=== PATIENT | female | born 1955 | race Two or more races ===

== ENCOUNTER 2021-07-15 04:37 | Inpatient (IN) | payer MEDICARE, OTHER ==
[~2021-07-15] VITALS: Ht 165.1 cm; Wt 67.6 kg
[2021-07-15] MEDS ORDERED: MELA3TAB41 PO (14:05)
[2021-07-15] MEDS ORDERED: MAGN61TA3 PO (14:05)
[2021-07-15] MEDS ORDERED: CHOL100043 PO (14:05)
[2021-07-15] MEDS ORDERED: BIOT800T PO (14:05)
[2021-07-15] MEDS ORDERED: CYAN-51 PO (14:05)
[2021-07-15] MEDS ORDERED: ZIPR40CA2 PO (14:05)
[2021-07-15] MEDS ORDERED: QUET100T PO (14:05)
[2021-07-15] MEDS ORDERED: RUTI500T PO (14:05)
[2021-07-15] MEDS ORDERED: TEMAZEPAM 7.5 MG CAPSULE PO PRN (14:30)
[2021-07-15] MEDS ORDERED: MAG HYDROX/AL HYDROX/SIMETH 30 ML UDC PO PRN (14:30)
[2021-07-15] MEDS ORDERED: BLOOD SUGAR DIAGNOSTIC 1 EACH STRIP IN ONE (14:30)
--- NOTE | 2021-07-15 14:36 | NUR ---
ANDREA Initial Discharge Plan: Pt currently resides at [address] [place] [address]; ([phone]). Pt lives with her ex-boyfriend. Patient would want to return back home upon dc. ANDREA will work with the MD, treatment team, and family to help coordinate appropriate discharge.
--- NOTE | 2021-07-15 14:36 | NUR ---
SW Admit Source: Pt placed on a 5150 hold for danger to self and GD. Pt brought in because she attempted to overdose and has been dealing with stage 3 kidney failure. Pt currently resides at [address] [place] [address]; ([phone]). Pt lives with her ex-boyfriend. Patient would want to return back home upon dc.
[2021-07-15 14:44] VITALS: BP 125/80
--- NOTE | 2021-07-15 15:05 | NUR ---
Pt. agreed got BS check and result is 106.
--- NOTE | 2021-07-15 15:45 | NUR ---
ANDREA Family Contact: Per pt's request she requested to contact friend Shiva ([phone]) to notify and to gather collateral, discuss treatment plan, and discharge plan. ANDREA left a detailed voicemail.
--- NOTE | 2021-07-15 15:54 | NUR ---
RN-CO: ADMITTED A 65 YEAR OLD FEMALE FROM [facility] ED. PATIENT IS ON A 72 HOUR HOLD FOR DANGER TO SELF AND GD. PER HOLD , SHE THREATENED TO OD ON MEDICATIONS, SHE WAS ACTING BIZARRE, LOUD AND UNABLE TO DIFFERENTIATE BETWEEN FANTASY AND REALITY. UPON FACE TO FACE ADMISSION WITH THE PATIENT, NOTED THAT HER AFFECT IS BLUNTED, HER SPEECH IS TANGENTIAL AND SHE HAS FLIGHT OF IDEAS. SHE IS HYPERVERBAL BUT SOME ARE NONSENSICAL, OTHERWISE SHE WAS ABLE TO TELL ME SOME INFORMATION ABOUT HERSELF. SHE DENIES SUICIDAL IDEATIONS. PATIENT'S RIGHTS WERE DISCUSSED TO HER, BOOKLET WAS GIVEN AND SHE VERBALIZED UNDERSTANDING. ALL BELONGINGS WERE SCREENED FROM [facility]ANDS AND WAS KEPT IN A LOCKED CABINET. VALUABLES WERE KEPT IN THE SAFE. DR JEFFERY GAVE ADMITTING ORDERS AND [place] PARADA NP WAS NOTIFIED AND ASKED TO RECONCILE HOME MEDS. WE WILL MONITOR THE PATUIENT AND ANTICIPATE HER NEEDS. HER SKIN IS INTACT AND CLEAR.
[2021-07-15 16:00] VITALS: BP 127/77
[2021-07-15 20:09] VITALS: BP 140/81
[2021-07-15] MEDS: LORAZEPAM 0.5 MG TABLET PO PRN (22:05)
[2021-07-15] MEDS: ACETAMINOPHEN 325 MG TABLET PO PRN (23:21)
[2021-07-16 07:45] LABS: CHOLESTEROL 237 mg/dL (<200); HDL CHOLESTEROL 85 mg/dL (40-60); LDL 138 mg/dL (0-99); TRIGLYCERIDES 73 mg/dL (30-150)
[2021-07-16 07:48] LABS: ALBUMIN 3.9 g/dL (3.4-5.0); BILIRUBIN,TOTAL 0.4 mg/dL (0.2-1.0); CREATININE 1.3 mg/dL (0.6-1.3); POTASSIUM 3.6 mmol/L (3.5-5.1); TOTAL PROTEIN, SERUM 8.1 g/dL (6.4-8.2)
[2021-07-16 08:00] VITALS: BP 129/69
[2021-07-16 08:21] LABS: THYROID STIMULATING HORMONE 0.991 uIU/mL (0.358-3.74)
[2021-07-16] MEDS: CHOLECALCIFEROL 1,000 UNIT TABLET (VIT D3) PO SCH (08:49)
[2021-07-16] MEDS: CYANOCOBALAMIN 500 MCG TABLET PO SCH (08:49)
[2021-07-16] MEDS: MAGNESIUM OXIDE 400 MG TABLET PO SCH ×2 (08:49→08:57)
[2021-07-16] MEDS ORDERED: BIOTIN 600 MCG PO SCH (09:00)
--- NOTE | 2021-07-16 12:36 | NUR ---
SW Friend Contact: SW received a call from pt's friend Shiva ([phone]) to gather collateral and discuss discharge plan. He stated pt lives with him and will return back to his house upon dc.
[2021-07-16 16:00] VITALS: BP 155/80
--- NOTE | 2021-07-16 18:32 | NUR ---
RN OPENING NOTES RECEIVED PATIENT SITTING ON THE CHAIR IN THE ALLEY AND A/O X2-3. ON ROOM AIR TOLERATING WELL. NO SOB NOTED. NOT IN DISTRESS. PATIENT IS CALM AT THIS TIME. WITH NO IV ACCESS. SAFETY MEASURES IN PLACED. BED ON LOWEST LOCKED POSITION, SIDE RAILS UP X2. WILL CONTINUE TO MONITOR.
--- NOTE | 2021-07-16 18:33 | NUR ---
RN CLOSING NOTES PATIENT SITTING ON THE CHAIR IN THE ALLEY AND A/O X2-3. ON ROOM AIR TOLERATING WELL. NO SOB NOTED. NOT IN DISTRESS. PATIENT IS CALM AT THIS TIME. WITH NO IV ACCESS. DUE MEDS GIVEN. SAFETY MEASURES IN PLACED. BED ON LOWEST LOCKED POSITION, SIDE RAILS UP X2. WILL ENDORSE TO NEXT SHIFT FOR JORGE.
--- NOTE | 2021-07-16 19:30 | NUR ---
GPS RN NOTE, RECEIVED PATIENT AWAKE AND IN BED, NO S/S OR COMPLAINTS OF PAIN AT THIS TIME. PATIENT IS DISPLAYING NO S/S OF APPARENT DISTRESS AT THIS TIME. PATIENT BREATHING IS UNLABORED WITH EQUAL RISE AND FALL OF THE CHEST. PATIENT IS ALERT AND ORIENTED X 2 ON ROOM AIR WITH A SPO2 93%. PATIENT IS COMPLIANT WITH MEDICATIONS, ANXIOUS, HYPERVERBAL, PARANOID, UNCOOPERATIVE AT TIMES, NEEDS REDIRECTION. PATIENT DENIES SUICIDAL AND HOMICIDAL IDEATIONS AT THIS TIME. PATIENT ASSISTED WITH TURNING AND REPOSITIONING Q2HR AND PRN FOR COMFORT AND CIRCULATION. PATIENT HAS NO NEEDS AT THIS TIME. PATIENT EDUCATED ON THE USE OF THE CALL PASTOR. PATIENT BED SIDE RAILS UP X 2 FOR SAFETY. PATIENT BED IS LOCKED, LOW, WITH BED ALARM ON. WILL CONTINUE TO MONITOR THIS PATIENT Q15 MINUTES WITH THE HELP OF STAFF TO MAINTAIN SAFETY.
[2021-07-16 20:00] VITALS: BP 151/91
--- NOTE | 2021-07-16 20:23 | NUR ---
GPS RN NOTE, PATIENT HAS A COMPLAINT OF A HEADACHE AT 3 OUT 10 ON THE PAIN SCALE AND IS REQUESTING TYLENOL AT THIS TIME. PATIENT VITAL SIGNS ARE STABLE. GAVE TYLENOL 650MG PO Q6HR PRN ORDERED. WILL REASSESS PAIN AND I WILL CONTINUE TO MONITOR THIS PATIENT WITH THE HELP OF STAFF.
[2021-07-16] MEDS: LORAZEPAM 0.5 MG TABLET PO PRN (20:24)
[2021-07-16] MEDS: ACETAMINOPHEN 325 MG TABLET PO PRN (20:24)
--- NOTE | 2021-07-16 20:24 | NUR ---
GPS RN NOTE, PATIENT HAS A COMPLAINT OF FEELING ANXIOUS AND IS REQUESTING ATIVAN AT THIS TIME. PATIENT VITAL SIGNS ARE STABLE. GAVE ATIVAN 0.5MG PO Q4HR PRN ORDERED. WILL REASSESS FOR ANXIETY AND I WILL CONTINUE TO MONITOR THIS PATIENT WITH THE HELP OF STAFF.
[2021-07-16] MEDS: CARBAMAZEPINE 200 MG TABLET PO SCH (23:48)
[2021-07-16] MEDS: clonazePAM 0.5 MG TABLET PO SCH (23:48)
[2021-07-17 08:00] VITALS: BP 136/86
[2021-07-17] MEDS: CARBAMAZEPINE 200 MG TABLET PO SCH ×3 (08:08→16:17)
[2021-07-17] MEDS: CHOLECALCIFEROL 1,000 UNIT TABLET (VIT D3) PO SCH (08:08)
[2021-07-17] MEDS: clonazePAM 0.5 MG TABLET PO SCH ×3 (08:08→16:17)
[2021-07-17] MEDS: MAGNESIUM OXIDE 400 MG TABLET PO SCH ×2 (08:08→08:12)
[2021-07-17] MEDS: CYANOCOBALAMIN 500 MCG TABLET PO SCH (08:08)
[2021-07-17 08:24] LABS: CREATININE 1.3 mg/dL (0.6-1.3); POTASSIUM 4.3 mmol/L (3.5-5.1)
[2021-07-17 16:00] VITALS: BP 134/77
--- NOTE | 2021-07-17 19:30 | NUR ---
GPS RN NOTE, RECEIVED PATIENT AWAKE AND IN BED, NO S/S OR COMPLAINTS OF PAIN AT THIS TIME. PATIENT IS DISPLAYING NO S/S OF APPARENT DISTRESS AT THIS TIME. PATIENT BREATHING IS UNLABORED WITH EQUAL RISE AND FALL OF THE CHEST. PATIENT IS ALERT AND ORIENTED X 2 ON ROOM AIR WITH A SPO2 96%. PATIENT IS COMPLIANT WITH MEDICATIONS, ANXIOUS, PARANOID, UNCOOPERATIVE AT TIMES, NEEDS REDIRECTION. PATIENT DENIES SUICIDAL AND HOMICIDAL IDEATIONS AT THIS TIME. PATIENT ASSISTED WITH TURNING AND REPOSITIONING Q2HR AND PRN FOR COMFORT AND CIRCULATION. PATIENT HAS NO NEEDS AT THIS TIME. PATIENT EDUCATED ON THE USE OF THE CALL PASTOR. PATIENT BED SIDE RAILS UP X 2 FOR SAFETY. PATIENT BED IS LOCKED, LOW, WITH BED ALARM ON. WILL CONTINUE TO MONITOR THIS PATIENT Q15 MINUTES WITH THE HELP OF STAFF TO MAINTAIN SAFETY.
[2021-07-17 20:00] VITALS: BP 127/77
[2021-07-18 08:00] VITALS: BP 121/76
[2021-07-18] MEDS: CYANOCOBALAMIN 500 MCG TABLET PO SCH (08:15)
[2021-07-18] MEDS: CARBAMAZEPINE 200 MG TABLET PO SCH ×3 (08:15→21:09)
[2021-07-18] MEDS: CHOLECALCIFEROL 1,000 UNIT TABLET (VIT D3) PO SCH (08:15)
[2021-07-18] MEDS: clonazePAM 0.5 MG TABLET PO SCH ×2 (08:15→21:20)
[2021-07-18] MEDS: MAGNESIUM OXIDE 400 MG TABLET PO SCH (08:18)
[2021-07-18] MEDS: ACETAMINOPHEN 325 MG TABLET PO PRN ×2 (10:29→18:09)
[2021-07-18 13:47] LABS: BASOPHILS % (AUTO) 0.8 % (0.0-2.0); EOSINOPHILS % (AUTO) 1.3 % (0.0-6.0); HEMATOCRIT 38 % (33-45); HEMOGLOBIN 12.3 g/dL (11.5-14.8); LYMPHOCYTES # (AUTO) 0.8 K/uL (0.8-4.8); LYMPHOCYTES % (AUTO) 14.1 % (20.0-44.0); MEAN CORPUSCULAR HGB CONC 32 g/dl (31.0-36.0); MEAN CORPUSCULAR VOLUME 84 fL (82-100); MONOCYTES # (AUTO) 0.3 K/uL (0.1-1.30); MONOCYTES % (AUTO) 4.9 % (2.0-12.0); NEUTROPHILS # (AUTO) 4.4 K/uL (1.8-8.9); NEUTROPHILS % (AUTO) 78.9 % (43.0-81.0); PLATELET COUNT (AUTO) 230 K/uL (150-450); RED BLOOD CELL COUNT(AUTO) 4.55 MIL/uL (4.0-5.2); WHITE BLOOD COUNT (AUTO) 5.5 K/uL (4.3-11.0)
[2021-07-18 14:14] LABS: ALBUMIN 3.5 g/dL (3.4-5.0); BILIRUBIN,TOTAL 0.2 mg/dL (0.2-1.0); CALCIUM, SERUM 9.6 mg/dL (8.5-10.1); CREATININE 1.4 mg/dL (0.6-1.3); TOTAL PROTEIN, SERUM 7.2 g/dL (6.4-8.2)
[2021-07-18 16:00] VITALS: BP 137/83
--- NOTE | 2021-07-18 18:09 | NUR ---
RN-CO: TYLENOL 650 MG GIVEN FOR C/O 5/10 HEADACHE. PT IS ARGUMENTATIVE , ALWAYS THREATENED STAFF TO REPORT TO PATIENT'S RIGHTS ADVOCATE, DEMANDING AND ENTITLED.
[2021-07-18 20:21] VITALS: BP 131/89
[2021-07-18 22:44] LABS: BILIRUBIN,URINE NEGATIVE (NEGATIVE); COLOR,URINE YELLOW (YELLOW); LEUKOCYTE ESTERASE ,URINE NEGATIVE (NEGATIVE); NITRITE, URINE NEGATIVE (NEGATIVE); PROTEIN,URINE NEGATIVE (NEGATIVE); UGLUCOSE NEGATIVE (NEGATIVE); UROBILINOGEN,URINE 0.2 EU/dL (0.2)
--- NOTE | 2021-07-18 23:48 | NUR ---
patient refused skin assessment.
[2021-07-19] MEDS: LORAZEPAM 0.5 MG TABLET PO PRN (05:08)
--- NOTE | 2021-07-19 05:13 | NUR ---
patient c/o feeling anxious,requested and given Ativan 0.5 mg PO as ordered.
[2021-07-19 08:00] VITALS: BP 128/80
[2021-07-19] MEDS: CYANOCOBALAMIN 500 MCG TABLET PO SCH (08:30)
[2021-07-19] MEDS: CHOLECALCIFEROL 1,000 UNIT TABLET (VIT D3) PO SCH (08:30)
[2021-07-19] MEDS: MAGNESIUM OXIDE 400 MG TABLET PO SCH (08:34)
[2021-07-19] MEDS: CARBAMAZEPINE 200 MG TABLET PO SCH ×2 (08:34→21:00)
--- NOTE | 2021-07-19 14:44 | NUR ---
GPS RN NOTE: PATIENT REQUESTED GLYCERIN SUPPOSITORY CALLED MARGOT PARADA T.O. ORDER PLACED AND CARED OUT
[2021-07-19] MEDS ORDERED: GLYCERIN ADULT 1 SUPP.RECT RC PRN ×2 (15:00)
[2021-07-19] MEDS: GLYCERIN CHILD (PED) SUPP 1 SUPP.RECT RC PRN (15:12)
[2021-07-19 16:00] VITALS: BP 133/83
[2021-07-19 19:29] VITALS: BP 139/67
[2021-07-19] MEDS: clonazePAM 0.5 MG TABLET PO SCH (21:10)
[2021-07-20] MEDS: LORAZEPAM 0.5 MG TABLET PO PRN (02:04)
[2021-07-20 08:34] VITALS: BP 135/81
[2021-07-20] MEDS: GABAPENTIN 100 MG CAPSULE PO SCH ×3 (09:00→17:20)
[2021-07-20] MEDS: MAGNESIUM OXIDE 400 MG TABLET PO SCH ×2 (09:00→09:18)
[2021-07-20] MEDS: CHOLECALCIFEROL 1,000 UNIT TABLET (VIT D3) PO SCH (09:17)
[2021-07-20] MEDS: CYANOCOBALAMIN 500 MCG TABLET PO SCH (09:18)
--- NOTE | 2021-07-20 10:27 | NUR ---
SNF Referral: Per pt's request, she would want a nursing facility and does not want to go back to [place]. SW sent clinicals to [facility] ([phone]) for placement option. SW sent H & P, progress notes, and medication list.
--- NOTE | 2021-07-20 14:07 | NUR ---
Court Hearing Notification: SW contacted friend Shiva ([phone]) to notify of pt's 7455 hearing and left a voicemail.
--- NOTE | 2021-07-20 14:07 | NUR ---
Court Hearing: Patient's court hearing for 0830 was today and it was upheld for GD.
--- NOTE | 2021-07-20 14:07 | NUR ---
dr. luis informed pt. refusing neurontin.
[2021-07-20 15:22] VITALS: BP 154/83
[2021-07-20] MEDS: GLYCERIN CHILD (PED) SUPP 1 SUPP.RECT RC PRN (19:59)
[2021-07-20 20:21] VITALS: BP 139/78
[2021-07-20] MEDS: clonazePAM 0.5 MG TABLET PO SCH (21:25)
[2021-07-21] MEDS: LORAZEPAM 0.5 MG TABLET PO PRN ×2 (04:43→22:12)
--- NOTE | 2021-07-21 04:47 | NUR ---
RN NOTE : ANXIETY PT. C/O FEELING ANXIOUS , RESTLESS, PRN ATIVAN 0.5 MG PO GIVEN PER PT. REQUEST, WILL CONTINUE TO MONITOR.
[2021-07-21 08:00] VITALS: BP 123/86
[2021-07-21] MEDS: CYANOCOBALAMIN 500 MCG TABLET PO SCH (08:26)
[2021-07-21] MEDS: MAGNESIUM OXIDE 400 MG TABLET PO SCH (08:26)
[2021-07-21] MEDS: CHOLECALCIFEROL 1,000 UNIT TABLET (VIT D3) PO SCH (08:26)
[2021-07-21] MEDS: GABAPENTIN 100 MG CAPSULE PO SCH ×2 (08:27→16:25)
--- NOTE | 2021-07-21 08:28 | NUR ---
RN-CO: PT REFUSED NEURONTINE, STATED "I DON'T WANT TO TAKE IT , I FEELED WIRED TAKING IT."
--- NOTE | 2021-07-21 10:00 | NUR ---
SNF Referral: Per pt's request, she would want a nursing facility and does not want to go back to [facility]. SW sent clinicals to [facility] ([phone]) for placement option. SW sent H & P, progress notes, and medication list.
--- NOTE | 2021-07-21 10:00 | NUR ---
SNF Contact: SW recieved a call from Boothe admin from [facility] ([phone]) who stated they cannot accept pt due to not having medical issues.
--- NOTE | 2021-07-21 12:24 | NUR ---
SNF Contact: SW received a call from Leti melendez from [facility] ([phone]) who stated pt is accepted.
--- NOTE | 2021-07-21 16:25 | NUR ---
RN-CO: PT FIRMLY REFUSED HER NEURONTIN AND GOT AGITATED WHEN I ENCOURAGED HER. SH STATED " I TOLD YOU I DON'T TAKE ANY MEDICATIONS IT IS BAD FOR MY KIDNEYS !"PSYCHIATRIST MADE AWARE.
[2021-07-21 16:31] VITALS: BP 150/94
--- NOTE | 2021-07-21 17:42 | NUR ---
RN-CO: NOTED PATIENT IS TALKING TO HER PEERS AND SAYING " DON'T TAKE YOUR MEDICATIONS IT IS TOXIC TO YOUR HEALTH." " THE DOCTOR'S HERE SUCKS.!" WHEN RN TALKED TO HER TO STOP DOING IT SHE THREATENED STAFF TO REPORT AND WILL GET FIRED.
[2021-07-21 20:00] VITALS: BP 137/88
[2021-07-21] MEDS: clonazePAM 0.5 MG TABLET PO SCH (21:30)
--- NOTE | 2021-07-21 21:48 | NUR ---
GPS RN NOTE: DR. JEFFERY IN THE UNIT CHANGED DOSE OF KLONOPIN FROM HS TO Q12HRS. KLONOPIN 0.25MG PO SCHEDULED AT 2200 WAS NOT ADMINISTERED BECAUSE IT WAS ALREADY GIVEN AT 2124. Addendum: 07/22/21 at 0352 by JOSEFINA DANIEL RN CHANGED FREQUENCY FROM HS TO Q12HRS
--- NOTE | 2021-07-21 21:48 | NUR ---
GPS RN NOTE: ANXIETY PATIENT C/O FEELING ANXIOUS AND REQUESTED FOR ATIVAN. ADMINISTERED ATIVAN 0.5MG PO ORDERED. WILL CONTINUE TO MONITOR FOR PATIENT'S SAFETY.
[2021-07-22 08:00] VITALS: BP 132/88
[2021-07-22] MEDS: CHOLECALCIFEROL 1,000 UNIT TABLET (VIT D3) PO SCH (09:00)
[2021-07-22] MEDS: GABAPENTIN 100 MG CAPSULE PO SCH ×2 (09:00→16:10)
[2021-07-22] MEDS: MAGNESIUM OXIDE 400 MG TABLET PO SCH (09:00)
[2021-07-22] MEDS: CYANOCOBALAMIN 500 MCG TABLET PO SCH (09:00)
[2021-07-22] MEDS: clonazePAM 0.5 MG TABLET PO SCH ×2 (09:00→10:11)
[2021-07-22 16:00] VITALS: BP 139/91
[2021-07-22 20:00] VITALS: BP 135/82
[2021-07-22] MEDS ORDERED: clonazePAM 0.5 MG TABLET PO ONE (21:00)
[2021-07-22] MEDS: LORAZEPAM 0.5 MG TABLET PO PRN (21:46)
--- NOTE | 2021-07-22 21:49 | NUR ---
GPS RN NOTES: PATIENT REQUESTED FOR ATIVAN D/T ANXIETY. ATIVAN 0.5MG GIVEN PO AT 2146. WILL CONTINUE TO MONITOR.
--- NOTE | 2021-07-22 21:51 | NUR ---
GPS RN NOTES: KLONOPIN 0.25MG WASTED PER PARTIAL DOSE ORDER, WITNESSED BY ANOTHER NURSE.
--- NOTE | 2021-07-23 06:40 | NUR ---
GPS RN CLOSING NOTES: PATIENT IS CURRENTLY SLEEPING. PATIENT SLEPT 9HR THIS SHIFT. NO S/S OF DISTRESS NOTED. RESPIRATION EVEN AND UNLABORED WITH EQUAL RISE AND FALL OF THE CHEST, ON ROOM AIR. ALL PATIENT CARE NEEDS HAVE BEEN MET ANTICIPATED. WILL CONTINUE TO MONITOR AND ENDORSE TO AM SHIFT.
[2021-07-23 08:00] VITALS: BP 125/93
[2021-07-23] MEDS: CYANOCOBALAMIN 500 MCG TABLET PO SCH (08:11)
[2021-07-23] MEDS: clonazePAM 0.5 MG TABLET PO SCH ×2 (08:11→21:07)
[2021-07-23] MEDS: GABAPENTIN 100 MG CAPSULE PO SCH ×3 (08:11→16:22)
[2021-07-23] MEDS: CHOLECALCIFEROL 1,000 UNIT TABLET (VIT D3) PO SCH (08:11)
[2021-07-23] MEDS: MAGNESIUM OXIDE 400 MG TABLET PO SCH ×2 (08:11→09:00)
--- NOTE | 2021-07-23 09:30 | NUR ---
RN Notes: Received pt. awake in bed, suspicious and hyperverbal. Ate 100% for breakfast, refused for Magnesium Oxide and compliant on the rest of the meds. Encouraged to verbalize feelings and motivated to attend group activity. Needs attended, no distress and no agitation noted. Will continue to monitor for safety.
--- NOTE | 2021-07-23 13:36 | NUR ---
RN Notes: Pt. ate 75% for lunch, compliant on meds, interacts to peers and staffs. Pt. is suspicious and irritable. Needs attended and will continue to monitor for safety.
[2021-07-23 16:00] VITALS: BP 122/76
--- NOTE | 2021-07-23 19:20 | NUR ---
GPS RN OPENING NOTES: RECEIVED PATIENT IN HALLWAY CHATTING WITH PEERS. A/O X2-3. FLAT AFFECT, ANXIOUS, GUARDED, NEEDY, DEMANDING, ASKING NURSE TO GET HER PM KLONOPIN IMMEDIATELY, THIS NURSE EXPLAINED TO PATIENT ITS NOT YET TIME FOR HER MEDS BUT PATIENT WAS STILL INSISTING ON GETTING HER KLONOPIN. PATIENT IS DIFFICULT TO REDIRECT AND HAS POOR INSIGHT INTO PRESENT ILLNESS. DENIES A/V HALLUCINATIONS, DENIES SI/HI AT THIS TIME. NO S/S OF DISTRESS. RESPIRATION EVEN AND UNLABORED WITH EQUAL RISE AND FALL OF THE CHEST, ON ROOM AIR. OFFERED FLUID AND SNACKS TOLERATED. WILL CONTINUE TO MONITOR Q15 FOR MOOD, SAFETY AND BEHAVIOR.
[2021-07-23 20:21] VITALS: BP 122/80
[2021-07-23] MEDS: LORAZEPAM 0.5 MG TABLET PO PRN (22:33)
--- NOTE | 2021-07-23 22:37 | NUR ---
GPS RN NOTES: PATIENT REQUESTED FOR ATIVAN D/T ANXIETY. ATIVAN 0.5MG GIVEN PO AT 2233. WILL CONTINUE TO MONITOR.
--- NOTE | 2021-07-24 06:59 | NUR ---
GPS RN CLOSING NOTES: PATIENT IS SLEEPING IN BED. PATIENT SLEPT 8HR THIS SHIFT. NO S/S OF DISTRESS NOTED. RESPIRATION EVEN AND UNLABORED WITH EQUAL RISE AND FALL OF THE CHEST, ON ROOM AIR. ALL PATIENT CARE NEEDS HAVE BEEN MET ANTICIPATED. BED IN LOW LOCKED POSITION, SIDE RAILS UP X2 FOR SAFETY. CALL PASTOR WITHIN REACH. WILL CONTINUE TO MONITOR AND ENDORSE TO AM SHIFT.
--- NOTE | 2021-07-24 07:40 | NUR ---
GPS/RN RECEIVED PATIENT RESTING IN THE ROOM NO S/S DISTRESS NOTED AT THIS TIME DENIES SI/HI AVH. DENIED PAIN AND DISCOMFORTS. DAILY MEDS COMPLIANT.ALL NEEDS ATTENDED AND ANTICIPATED. WILL CONTINUE MONITORING FOR SAFETY AND BEHAVIOR Q 15 MIN
[2021-07-24 08:00] VITALS: BP 128/83
[2021-07-24] MEDS: MAGNESIUM OXIDE 400 MG TABLET PO SCH (09:00)
[2021-07-24] MEDS: GLYCERIN CHILD (PED) SUPP 1 SUPP.RECT RC PRN (09:02)
[2021-07-24] MEDS: CHOLECALCIFEROL 1,000 UNIT TABLET (VIT D3) PO SCH (09:17)
[2021-07-24] MEDS: CYANOCOBALAMIN 500 MCG TABLET PO SCH (09:17)
[2021-07-24] MEDS: GABAPENTIN 300 MG CAPSULE PO SCH ×3 (09:17→17:15)
[2021-07-24] MEDS: clonazePAM 0.5 MG TABLET PO SCH ×2 (09:18→21:02)
[2021-07-24 16:00] VITALS: BP 139/90
--- NOTE | 2021-07-24 19:28 | NUR ---
GPS RN NOTE, RECEIVED PATIENT AWAKE AND IN BED, NO S/S OR COMPLAINTS OF PAIN AT THIS TIME. PATIENT IS DISPLAYING NO S/S OF APPARENT DISTRESS AT THIS TIME. PATIENT BREATHING IS UNLABORED WITH EQUAL RISE AND FALL OF THE CHEST. PATIENT IS ALERT AND ORIENTED X 2 ON ROOM AIR WITH A SPO2 97%. PATIENT IS COMPLIANT WITH MEDICATIONS, ANXIOUS, HYPERVERBAL, PARANOID, UNCOOPERATIVE AT TIMES, NEEDS REDIRECTION. PATIENT DENIES SUICIDAL AND HOMICIDAL IDEATIONS AT THIS TIME. PATIENT ASSISTED WITH TURNING AND REPOSITIONING Q2HR AND PRN FOR COMFORT AND CIRCULATION. PATIENT HAS NO NEEDS AT THIS TIME. PATIENT EDUCATED ON THE USE OF THE CALL PASTOR. PATIENT BED SIDE RAILS UP X 2 FOR SAFETY. PATIENT BED IS LOCKED, LOW, WITH BED ALARM ON. WILL CONTINUE TO MONITOR THIS PATIENT Q15 MINUTES WITH THE HELP OF STAFF TO MAINTAIN SAFETY.
[2021-07-24 20:22] VITALS: BP 135/81
[2021-07-24] MEDS: LORAZEPAM 0.5 MG TABLET PO PRN (21:34)
[2021-07-25] MEDS: MAGNESIUM HYDROXIDE 30 ML UDC PO PRN ×2 (06:28→19:24)
--- NOTE | 2021-07-25 06:29 | NUR ---
GPS RN NOTE, PATIENT HAS A COMPLAINT OF FEELING CONSTIPATED AND IS REQUESTING MOM AT THIS TIME. PATIENT VITAL SIGNS ARE STABLE . GAVE MILK OF MAGNESIA 30 ML DOSE PO Q12HR PRN ORDERED. WILL CONTINUE TO MONITOR THIS PATIENT WITH THE HELP OF STAFF.
[2021-07-25 08:00] VITALS: BP 134/82
[2021-07-25] MEDS: CYANOCOBALAMIN 500 MCG TABLET PO SCH (08:44)
[2021-07-25] MEDS: GABAPENTIN 300 MG CAPSULE PO SCH ×3 (08:44→16:23)
[2021-07-25] MEDS: MAGNESIUM OXIDE 400 MG TABLET PO SCH (08:44)
[2021-07-25] MEDS: CHOLECALCIFEROL 1,000 UNIT TABLET (VIT D3) PO SCH (08:44)
[2021-07-25] MEDS: clonazePAM 0.5 MG TABLET PO SCH ×2 (08:45→21:27)
--- NOTE | 2021-07-25 10:45 | NUR ---
RN-CO: PATIENT IS NEEDY, ATTENTION SEEKER, EASILY AGITATED , MANIPULATIVE. STAFF SPLITTING AND ENTITLES. SOCIALIZING TO OTHER PATIENTS. SHE IS VISIBLE IN THE UNIT. SHE IS FOCUS ON ANAL SUPPOSITORY FOR CONSTIPATION EVEN MOM IS GIVEN. SHE IS THREATENING TO GOT TO ER AND LEAVE IF NEEDS ARE NOT MET. SHE NEEDS LIMIT SETTING. I WILL CONTINUE TO MONITOR AND NOTIFY .
[2021-07-25] MEDS: GLYCERIN CHILD (PED) SUPP 1 SUPP.RECT RC PRN (10:56)
[2021-07-25 16:00] VITALS: BP 128/65
[2021-07-25 20:51] VITALS: BP 110/70
--- NOTE | 2021-07-25 23:19 | NUR ---
Patient appears to be restless,anxious,pacing along the hallway,sad face,and blunted affect.Patient is compliant with medications .No s/s of acute distress noted.Will continue to monitor q15 mins rounds for safety.
--- NOTE | 2021-07-25 23:26 | NUR ---
Refused skin assessment stated I have intact skin.
[2021-07-26 08:00] VITALS: BP 133/84
[2021-07-26] MEDS ORDERED: risperiDONE 0.25 MG TABLET PO SCH (09:00)
[2021-07-26] MEDS: CYANOCOBALAMIN 500 MCG TABLET PO SCH (09:30)
[2021-07-26] MEDS: MAGNESIUM OXIDE 400 MG TABLET PO SCH (09:30)
[2021-07-26] MEDS: CHOLECALCIFEROL 1,000 UNIT TABLET (VIT D3) PO SCH (09:30)
[2021-07-26] MEDS: GABAPENTIN 300 MG CAPSULE PO SCH ×3 (09:30→17:40)
[2021-07-26 10:13] LABS: CALCIUM, SERUM 9.7 mg/dL (8.5-10.1); CREATININE 1.3 mg/dL (0.6-1.3); POTASSIUM 4.4 mmol/L (3.5-5.1)
[2021-07-26 16:00] VITALS: BP 126/84
--- NOTE | 2021-07-26 19:40 | NUR ---
GPS RN OPENING NOTE RECEIVED PATIENT AMBULATING AROUND ROOM. ALERT AND ORIENTED X 3. ISOLATIVE AND WITHDRAWN. DENIES PAIN AT THIS TIME. AMBULATORY WITH STEADY GAIT. DENIES SI/HI AT THIS TIME. ENCOURAGED PATIENT TO VERBALIZE FEELINGS AND NEEDS. WILL CONTINUE TO MONITOR FOR SAFETY.
[2021-07-26 19:48] VITALS: BP 114/70
[2021-07-26] MEDS: MAGNESIUM HYDROXIDE 30 ML UDC PO PRN (20:07)
--- NOTE | 2021-07-26 20:35 | NUR ---
GPS RN NOTE PATIENT IS ALERT AND ORIENTED X 3. NEEDY AND ATTENTION SEEKING. REQUESTING MEDICATION FOR CONSTIPATION. GIVEN PRN MOM WITH PENDING EFFECT. WILL CONTINUE TO MONITOR.
[2021-07-26] MEDS: clonazePAM 0.5 MG TABLET PO SCH (21:12)
[2021-07-26] MEDS: LORAZEPAM 0.5 MG TABLET PO PRN (22:07)
--- NOTE | 2021-07-26 22:09 | NUR ---
GPS NOTE PATIENT REQUESTING ATIVAN FOR INCREASED ANXIETY. ADMINISTERED PRN ATIVAN PER MD ORDER.
--- NOTE | 2021-07-27 06:40 | NUR ---
GPS RN CLOSING NOTE PATIENT CURRENTLY SLEEPING IN BED. ALERT AND ORIENTED X 3. ISOLATIVE AND WITHDRAWN. DENIES PAIN AT THIS TIME. AMBULATORY WITH STEADY GAIT. DENIES SI/HI AT THIS TIME. COMPLIANT WITH MEDICATIONS. ENCOURAGED PATIENT TO VERBALIZE FEELINGS AND NEEDS. WILL ENDORSE PLAN OF CARE TO ONCOMING SHIFT.
[2021-07-27 08:00] VITALS: BP 115/73
[2021-07-27] MEDS: MAGNESIUM OXIDE 400 MG TABLET PO SCH (09:12)
[2021-07-27] MEDS: CYANOCOBALAMIN 500 MCG TABLET PO SCH (09:12)
[2021-07-27] MEDS: GABAPENTIN 300 MG CAPSULE PO SCH ×3 (09:12→17:47)
[2021-07-27] MEDS: CHOLECALCIFEROL 1,000 UNIT TABLET (VIT D3) PO SCH (09:12)
--- NOTE | 2021-07-27 11:25 | NUR ---
SW Note: SW met with patient to discuss that pt is accepted at [facility]. She was agreeable of this and accepting of going to a facility. Pt stated not to share this news with her friend Shiva and that she will inform him herself.
--- NOTE | 2021-07-27 13:00 | NUR ---
Patient resting at this time ,isolative and withdrawn ,refused to attend groups ,no plan for self care .will continue to monitor for safety encourage patient to verbalize feelings and thoughts ,redirect as needed.
[2021-07-27 16:00] VITALS: BP 134/61
[2021-07-27 19:40] VITALS: BP 134/83
--- NOTE | 2021-07-27 19:40 | NUR ---
GPS RN OPENING NOTES: RECEIVED PATIENT LAYING ON BED, AWAKE, A/O X3. APPEARS DEPRESSED, FLAT AFFECT, PASSIVE, WITHDRAWN, ISOLATIVE, GUARDED. ENCOURAGED TO VERBALIZE FEELINGS. DENIES A/V HALLUCINATIONS, DENIES SI/HI AT THIS TIME. NO S/S OF DISTRESS. RESPIRATION EVEN AND UNLABORED WITH EQUAL RISE AND FALL OF THE CHEST, ON ROOM AIR. OFFERED FLUID AND SNACKS TOLERATED. BED IN LOW LOCKED POSITION, CALL PASTOR WITHIN REACH. WILL CONTINUE TO MONITOR Q15 FOR MOOD, SAFETY AND BEHAVIOR.
[2021-07-27] MEDS: MAGNESIUM HYDROXIDE 30 ML UDC PO PRN (20:07)
--- NOTE | 2021-07-27 20:10 | NUR ---
GPS RN NOTES: PATIENT C/O CONSTIPATION. MOM 30ML GIVEN PO AT 2006. WILL CONTINUE TO MONITOR.
[2021-07-27] MEDS: clonazePAM 0.5 MG TABLET PO SCH (21:45)
[2021-07-27] MEDS: LORAZEPAM 0.5 MG TABLET PO PRN (22:27)
--- NOTE | 2021-07-27 22:29 | NUR ---
GPS RN NOTES: PATIENT REQUESTED FOR ATIVAN D/T ANXIETY. ATIVAN 0.5MG GIVEN PO AT 2227. WILL CONTINUE TO MONITOR.
--- NOTE | 2021-07-28 06:56 | NUR ---
GPS RN CLOSING NOTES: PATIENT IS LAYING ON BED AWAKE, A/O X2-3. PATIENT SLEPT 7HR THIS SHIFT. NO S/S OF DISTRESS NOTED. RESPIRATION EVEN AND UNLABORED WITH EQUAL RISE AND FALL OF THE CHEST, ON ROOM AIR. ALL PATIENT CARE NEEDS HAVE BEEN MET ANTICIPATED. BED IN LOW LOCKED POSITION, SIDE RAILS UP X2 FOR SAFETY. CALL PASTOR WITHIN REACH. WILL CONTINUE TO MONITOR AND ENDORSE TO AM SHIFT.
[2021-07-28] MEDS: MAGNESIUM HYDROXIDE 30 ML UDC PO PRN (07:18)
--- NOTE | 2021-07-28 07:20 | NUR ---
GPS RN NOTES: PATIENT C/O CONSTIPATION. MOM 30ML GIVEN PO AT 0718. WILL CONTINUE TO MONITOR.
[2021-07-28 08:00] VITALS: BP 131/73
[2021-07-28] MEDS: CHOLECALCIFEROL 1,000 UNIT TABLET (VIT D3) PO SCH (09:00)
[2021-07-28] MEDS: CYANOCOBALAMIN 500 MCG TABLET PO SCH (09:00)
[2021-07-28] MEDS: MAGNESIUM OXIDE 400 MG TABLET PO SCH (09:00)
[2021-07-28] MEDS: GABAPENTIN 300 MG CAPSULE PO SCH ×3 (09:00→17:58)
[2021-07-28] MEDS ORDERED: GLYCERIN ADULT 1 SUPP.RECT RC PRN (15:00)
--- NOTE | 2021-07-28 15:43 | NUR ---
Individual Counseling: SW met with pt.in her room. Pt. was sitting in room chair and appears unkempt and withdrawn. SW introduced self and patient asked where her suppository is. Patient is paranoid and stated "I think you are playing games with me". SW notified patient that she would ask the nurse. Per nurse, pt. was given the suppository a long time ago. SW notified pt. and pt. became loud and upset. Pt. is not appropriate for counseling at this time. SW will monitor pt.'s ability to participate in therapeutic milieu.
[2021-07-28 16:00] VITALS: BP 142/84
[2021-07-28 20:00] VITALS: BP 129/71
[2021-07-28] MEDS: clonazePAM 0.5 MG TABLET PO SCH (21:34)
[2021-07-28] MEDS: LORAZEPAM 0.5 MG TABLET PO PRN (22:05)
[2021-07-29 08:00] VITALS: BP 112/75
--- NOTE | 2021-07-29 08:02 | NUR ---
SW Discharge Note: Patient will be discharged to usp facility [facility] [address], [place] [address]; ). Please arrange transportation at 1PM. Head Of Marketing spoke with Leti parole hearing officer at [facility]; ([phone], who stated patient will be accepted today. Patients friend Shiva ([phone]) is aware of dc. Patient is alert and oriented x3 and is unable to plan for self-care. Patient denies any suicidal or homicidal ideations. Patient is aware and agreeable with discharge plans. Patient will continue to follow-up with her (Psychiatrist) located at [address], [place] [address]; ([phone]) and (french folding machine operator) Dr. Hogan [address], [place] [address]; ([phone]). Patient presents with euthymic and congruent mood.
--- NOTE | 2021-07-29 08:22 | NUR ---
Dr. Horne gave an order to D/C hold and D/C to [facility], to follow up with psych and medical doctors and to continue same meds including prn. Pt.. without distress, denies suicidal and homicidal. Belongings ready and discharge papers ready. Addendum: 07/29/21 at 1504 by BESSIE TAVARES RN Vicente Wood made aware of the discharge and reconciled meds to continue in the facility
[2021-07-29] MEDS: GABAPENTIN 300 MG CAPSULE PO SCH ×2 (09:03→12:09)
[2021-07-29] MEDS: CHOLECALCIFEROL 1,000 UNIT TABLET (VIT D3) PO SCH (09:03)
[2021-07-29] MEDS: CYANOCOBALAMIN 500 MCG TABLET PO SCH (09:03)
[2021-07-29] MEDS: MAGNESIUM OXIDE 400 MG TABLET PO SCH (09:03)
--- NOTE | 2021-07-29 11:32 | NUR ---
RN NOTES GAVE REPORT TO CONI ALCANTAR AT [facility].
--- NOTE | 2021-07-29 13:35 | NUR ---
DC NOTES PT DC'D TO [facility] SN[facility] IN STABLE CONDITION. DC INSTRUCTIONS GIVEN AND EXPLAINED TO PT. PT VERBALIZED UNDERSTANDING. ALL PAPERWORK SIGNED AND COMPLETED. ALL BELONGINGS SENT. REPORT CALLED TO KATHARINE NEWBERRY AT [facility]. PT LEFT UNIT IN STABLE CONDITION VIA RUBA. PT ENDORSED TO AMBULANCE CREW ACCORDINGLY. Addendum: 07/29/21 at 1454 by VITALIY COTTRELL RN DOCTOR GAVE DC ORDER FOR [facility]. PT DENIES SUICIDAL AND HOMICIDAL TENDENCIES. RAÚL MOYER MADE AWARE. MEDICATIONS RECONCILED TO CONTINUE AT FACILITY.
== END 2021-07-29 13:40 | DRG 885 ==
LOC: GPS 13:41
PROVIDERS: ADMIT Psychiatry & Neurology Psychiatry; ATTEND Nurse Practitioner Acute Care
DX: F31.10 Bipolar disorder, current episode manic without psychotic features, unspecified (principal); N17.0 Acute kidney failure with tubular necrosis; N18.30 Chronic kidney disease, stage 3 unspecified; R45.851 Suicidal ideations; F29 Unspecified psychosis not due to a substance or known physiological condition; M81.0 Age-related osteoporosis without current pathological fracture; I12.9 Hypertensive chronic kidney disease with stage 1 through stage 4 chronic kidney disease, or unspecified chronic kidney disease; Z73.6 Limitation of activities due to disability; E89.0 Postprocedural hypothyroidism; Z90.5 Acquired absence of kidney; Z90.49 Acquired absence of other specified parts of digestive tract
CPT/HCPCS: 36415; 80048-TC; 80053-TC; 80061-TC; 82140-TC; 83735-TC; 84443-TC; 85025-TC; 87081-TC

== ENCOUNTER 2022-01-30 07:38 | Inpatient (IN) | payer MEDICARE, OTHER ==
[~2022-01-30] VITALS: Ht 165.1 cm; Wt 65.8 kg
[~2022-01-30 07:38] MED LIST: BIOT800T PO; CHOL100043 PO; CYAN-51 PO; MAGN61TA3 PO; RUTI500T PO
[2022-01-30 08:00] VITALS: BP 133/59
[2022-01-30] MEDS ORDERED: MAG HYDROX/AL HYDROX/SIMETH 30 ML UDC PO PRN ×2 (08:00→17:30)
[2022-01-30] MEDS ORDERED: ACETAMINOPHEN 325 MG TABLET PO PRN (08:00)
[2022-01-30] MEDS ORDERED: ZOLPIDEM TARTRATE 5 MG TABLET PO PRN (08:00)
[2022-01-30] MEDS ORDERED: HYDR-500 PO (08:26)
[2022-01-30] MEDS ORDERED: TEMA7.5C12 PO (08:26)
[2022-01-30] MEDS ORDERED: ARIP15TA3 PO (08:26)
[2022-01-30] MEDS ORDERED: TRAZ-182 PO (08:26)
[2022-01-30] MEDS ORDERED: ACET-2605 PO (08:26)
[2022-01-30] MEDS ORDERED: OLAN5TAB3 PO (08:26)
[2022-01-30] MEDS ORDERED: MAG30ORA PO (08:26)
[2022-01-30] MEDS ORDERED: ASCO-495 PO (08:26)
--- NOTE | 2022-01-30 09:07 | NUR ---
RN-CO: Admitted a 66 year old female from [facility] for agitation. Per hold she had a pressured speech, , unable to be de escalated, and has labile mood. She has history of Bipolar disorder. Upon face to face admission, she is irritable, has pressured speech, intense eye contact. She is also paranoid and suspicious. She thinks that staff is stealing her money. Her appearance is well groomed. All her belongings were screened for contraband and kept to locked . Her valuables were taken to the safe. Dr Nuñez gave his admitting orders and Dr Gaming was notified to reconcile her home medications. Patient's rights were discussed to her and she verbalized understanding. Patient's rights booklet was also given.Patient at this time refused skin assessment. Plan of care initiated.
[2022-01-30 16:00] VITALS: BP 142/83
[2022-01-30] MEDS: OXCARBAZEPINE 150 MG TABLET PO SCH (17:11)
[2022-01-30] MEDS ORDERED: ACETAMINOPHEN ES 500 MG TABLET PO PRN (17:30)
[2022-01-30] MEDS ORDERED: hydrOXYzine 10 MG TABLET PO PRN (17:30)
[2022-01-30 20:06] VITALS: BP 115/59
[2022-01-30] MEDS: OLANZAPINE 10 MG TABLET PO SCH (21:27)
[2022-01-30] MEDS: LORAZEPAM 0.5 MG TABLET PO PRN (22:53)
[2022-01-31 07:21] LABS: CHOLESTEROL 225 mg/dL (<200); HDL CHOLESTEROL 69 mg/dL (40-60); LDL 129 mg/dL (0-99); TRIGLYCERIDES 99 mg/dL (30-150)
[2022-01-31 08:00] VITALS: BP 130/72
[2022-01-31 08:21] LABS: ALBUMIN 3.1 g/dL (3.4-5.0); BILIRUBIN,TOTAL 0.3 mg/dL (0.2-1.0); CALCIUM, SERUM 9.1 mg/dL (8.5-10.1); CREATININE 1.2 mg/dL (0.6-1.3); POTASSIUM 4.3 mmol/L (3.5-5.1)
[2022-01-31] MEDS: CHOLECALCIFEROL 1,000 UNIT TABLET (VIT D3) PO SCH (09:04)
[2022-01-31] MEDS: OXCARBAZEPINE 150 MG TABLET PO SCH ×2 (09:04→16:05)
[2022-01-31] MEDS: CYANOCOBALAMIN 500 MCG TABLET PO SCH (09:04)
[2022-01-31] MEDS: ASCORBIC ACID 500 MG TABLET PO SCH (09:05)
--- NOTE | 2022-01-31 10:31 | NUR ---
ANDREA Clinical Note: Pt placed on a 5150 hold danger to others. Pt refusing medications and agitated. Patient states that she lives at a Detention located at [address] [place] [address] ([phone]). SW attempted to contact the nursing home but the phone number does not work. Pt does not have any supportive contact at this time.
--- NOTE | 2022-01-31 10:31 | NUR ---
ANDREA Initial Discharge Note: Patient states that she lives at a Jail located at [address] [place] [address] ([phone]). SW attempted to contact the longterm but the phone number does not work. Pt does not have any supportive contact at this time. ANDREA will work with the MD, treatment team, and pt to help coordinate appropriate discharge.
--- NOTE | 2022-01-31 10:33 | NUR ---
Treatment Plan: Pt refused to sign the treatment plan and appeared to be suspicious.
[2022-01-31 16:00] VITALS: BP 128/76
[2022-01-31 20:02] VITALS: BP 127/76
[2022-01-31] MEDS: OLANZAPINE 10 MG TABLET PO SCH (21:13)
[2022-01-31] MEDS: LORAZEPAM 0.5 MG TABLET PO PRN (23:46)
--- NOTE | 2022-01-31 23:46 | NUR ---
NURSE NOTE: PT AWAKE AND ANXIOUS AT THIS TIME. REQUESTED ATIVAN AT THIS TIME. ATIVAN ADMINISTERED ORDERED. PT URIAH WELL. WILL CONT TO MONITOR.
--- NOTE | 2022-02-01 00:39 | NUR ---
NURSE NOTE: PT SLEEPING AT THIS TIME. ATIVAN EFFECTIVE AT THIS TIME. WILL CONT TO MONITOR.
--- NOTE | 2022-02-01 07:00 | NUR ---
RN NOTES: RECEIVED PT IN BED. AWAKE, ALERT X4 AND ABLE TO VERBALIZED NEEDS. NOS OB OR CARDIAC DISTRESS NOTED. PT AMBULATORY AND READING BOOK.DENIES ANY PAIN/DISCOMFORTS AT THIS TIME.SAFETY MEASURES MAINTAINED SIDE RAILS UP X 2. CALL LIGHT IN EASY REACH FOR HELP. WILL MONITOR PT ACCORDINGLY.
[2022-02-01 08:00] VITALS: BP 123/71
[2022-02-01] MEDS: CHOLECALCIFEROL 1,000 UNIT TABLET (VIT D3) PO SCH (08:41)
[2022-02-01] MEDS: CYANOCOBALAMIN 500 MCG TABLET PO SCH (08:41)
[2022-02-01] MEDS: OXCARBAZEPINE 150 MG TABLET PO SCH ×2 (08:41→16:10)
[2022-02-01] MEDS: ASCORBIC ACID 500 MG TABLET PO SCH (08:41)
--- NOTE | 2022-02-01 11:47 | NUR ---
SW Family Contact: SW spoke with pt's significant other Johnnie ([phone]) and he stated that pt lives with him and he will order picker pt when pt is stable for discharge.
[2022-02-01 16:12] VITALS: BP 113/87
[2022-02-01 20:26] VITALS: BP 115/73
[2022-02-01] MEDS: OLANZAPINE 10 MG TABLET PO SCH (21:16)
[2022-02-01] MEDS ORDERED: ZOLPIDEM TARTRATE 5 MG TABLET PO SCH (22:00)
[2022-02-02 08:00] VITALS: BP 126/83
[2022-02-02] MEDS: ASCORBIC ACID 500 MG TABLET PO SCH (08:24)
[2022-02-02] MEDS: CHOLECALCIFEROL 1,000 UNIT TABLET (VIT D3) PO SCH (08:24)
[2022-02-02] MEDS: CYANOCOBALAMIN 500 MCG TABLET PO SCH (08:24)
[2022-02-02] MEDS: OXCARBAZEPINE 150 MG TABLET PO SCH ×2 (08:24→16:36)
--- NOTE | 2022-02-02 10:25 | NUR ---
Court Notification: SW attempted to contact pt's significant other Johnnie ([phone]) and left a voicemail for [phone] hearing.
--- NOTE | 2022-02-02 10:26 | NUR ---
Court Hearing: Patient's court hearing for 6520 was today and it was upheld for GD.
[2022-02-02 16:00] VITALS: BP 135/73
--- NOTE | 2022-02-02 19:52 | NUR ---
GPS RN OPENING NOTES RECEIVED PATIENT RESTING IN BED, A/O X3, CALM, PLEASANT, ANXIOUS. NO S/S OF PAIN NOTED AT THIS TIME. ON ROOM AIR, NO DISTRESS OR SHORTNESS OF BREATH NOTED. PATIENT DENIES SUICIDE IDEATIONS AND HOMICIDAL IDEATIONS AT THIS TIME. PATIENT HAS NO NEEDS AT THIS TIME. FALL AND SAFETY MEASURES IN PLACE, BED IN LOWEST AND LOCKED POSITION, SIDE RAILS UP X2 FOR SAFETY. WILL CONTINUE TO MONITOR THROUGHOUT THE SHIFT.
[2022-02-02 20:00] VITALS: BP 113/48
[2022-02-02] MEDS: ZOLPIDEM TARTRATE 5 MG TABLET PO SCH (21:17)
[2022-02-02] MEDS: OLANZAPINE 10 MG TABLET PO SCH (21:17)
[2022-02-03 08:00] VITALS: BP 118/77
[2022-02-03] MEDS: CYANOCOBALAMIN 500 MCG TABLET PO SCH (08:05)
[2022-02-03] MEDS: OXCARBAZEPINE 150 MG TABLET PO SCH ×2 (08:05→21:11)
[2022-02-03] MEDS: CHOLECALCIFEROL 1,000 UNIT TABLET (VIT D3) PO SCH (08:06)
[2022-02-03] MEDS: ASCORBIC ACID 500 MG TABLET PO SCH (08:06)
--- NOTE | 2022-02-03 09:45 | NUR ---
RN Notes: Received pt. awake in the room and responsive to staffs. Ate 100% for breakfast, compliant on meds. Pt. interacts to staffs, and no distress noted. Encouraged to verbalize feelings and motivated to attend group activity. Needs attended and will continue to monitor for safety.
--- NOTE | 2022-02-03 14:34 | NUR ---
Dr. Nuñez gave an order to change Trileptal to 450 mg po in AM and 450 mg at bedtime.
[2022-02-03 16:00] VITALS: BP 134/84
[2022-02-03] MEDS: MAGNESIUM HYDROXIDE 30 ML UDC PO PRN (17:53)
--- NOTE | 2022-02-03 19:30 | NUR ---
GPS RN NOTE, RECEIVED PATIENT AWAKE AND IN BED, NO S/S OR COMPLAINTS OF PAIN AT THIS TIME. PATIENT IS DISPLAYING NO S/S OF APPARENT DISTRESS AT THIS TIME. PATIENT BREATHING IS UNLABORED WITH EQUAL RISE AND FALL OF THE CHEST. PATIENT IS ALERT AND ORIENTED X 2 ON ROOM AIR WITH A SPO2 96%. PATIENT IS COMPLIANT WITH MEDICATIONS, CALM, POLITE, DISORGANIZED, HYPERVERBAL, DEMANDING, AND COOPERATIVE. PATIENT DENIES SUICIDAL AND HOMICIDAL IDEATIONS AT THIS TIME. PATIENT ASSISTED WITH TURNING AND REPOSITIONING Q2HR AND PRN FOR COMFORT AND CIRCULATION. PATIENT HAS NO NEEDS AT THIS TIME. PATIENT EDUCATED ON THE USE OF THE CALL PASTOR. PATIENT BED SIDE RAILS UP X 2 FOR SAFETY. PATIENT BED IS LOCKED, LOW, WITH BED ALARM ON. WILL CONTINUE TO MONITOR THIS PATIENT Q15 MINUTES WITH THE HELP OF STAFF TO MAINTAIN SAFETY.
[2022-02-03 20:00] VITALS: BP 133/89
[2022-02-03] MEDS: ZOLPIDEM TARTRATE 5 MG TABLET PO SCH (21:11)
--- NOTE | 2022-02-03 21:11 | NUR ---
GPS RN NOTE, PATIENT HAS A COMPLAINT OF NOT BEING ABLE TO SLEEP AND IS REQUESTING A AMBIEN AT THIS TIME. PATIENT VITAL SIGNS ARE STABLE. GAVE AMBIEN 10MG PO HS ORDERED. WILL REASSESS FOR INSOMNIA AND I WILL CONTINUE TO MONITOR THIS PATIENT WITH THE HELP OF STAFF.
[2022-02-03] MEDS: OLANZAPINE 10 MG TABLET PO SCH (21:16)
[2022-02-04] MEDS: LORAZEPAM 0.5 MG TABLET PO PRN (02:46)
--- NOTE | 2022-02-04 02:48 | NUR ---
GPS RN NOTE, PATIENT HAS A COMPLAINT OF FEELING ANXIOUS AND IS REQUESTING ATIVAN AT THIS TIME. PATIENT VITAL SIGNS ARE STABLE GAVE ATIVAN 1MG PO Q6HR PRN ORDERED. WILL REASSESS FOR ANXIETY AND I WILL CONTINUE TO MONITOR THIS PATIENT WITH THE HELP OF STAFF.
[2022-02-04 08:00] VITALS: BP 122/76
[2022-02-04] MEDS: CHOLECALCIFEROL 1,000 UNIT TABLET (VIT D3) PO SCH (08:28)
[2022-02-04] MEDS: ASCORBIC ACID 500 MG TABLET PO SCH (08:29)
[2022-02-04] MEDS: OXCARBAZEPINE 150 MG TABLET PO SCH ×2 (08:29→21:29)
[2022-02-04] MEDS: CYANOCOBALAMIN 500 MCG TABLET PO SCH (08:29)
[2022-02-04 16:00] VITALS: BP 119/76
--- NOTE | 2022-02-04 19:30 | NUR ---
GPS RN NOTE, RECEIVED PATIENT AWAKE AND IN BED, NO S/S OR COMPLAINTS OF PAIN AT THIS TIME. PATIENT IS DISPLAYING NO S/S OF APPARENT DISTRESS AT THIS TIME. PATIENT BREATHING IS UNLABORED WITH EQUAL RISE AND FALL OF THE CHEST. PATIENT IS ALERT AND ORIENTED X 2 ON ROOM AIR WITH A SPO2 95%. PATIENT IS COMPLIANT WITH MEDICATIONS, CALM, POLITE, DISORGANIZED, HYPERVERBAL, DEMANDING, AND COOPERATIVE. PATIENT DENIES SUICIDAL AND HOMICIDAL IDEATIONS AT THIS TIME. PATIENT ASSISTED WITH TURNING AND REPOSITIONING Q2HR AND PRN FOR COMFORT AND CIRCULATION. PATIENT HAS NO NEEDS AT THIS TIME. PATIENT EDUCATED ON THE USE OF THE CALL PASTOR. PATIENT BED SIDE RAILS UP X 2 FOR SAFETY. PATIENT BED IS LOCKED, LOW, WITH BED ALARM ON. WILL CONTINUE TO MONITOR THIS PATIENT Q15 MINUTES WITH THE HELP OF STAFF TO MAINTAIN SAFETY.
[2022-02-04 20:00] VITALS: BP 130/81
[2022-02-04] MEDS: OLANZAPINE 10 MG TABLET PO SCH (21:29)
[2022-02-04] MEDS: ZOLPIDEM TARTRATE 5 MG TABLET PO SCH (21:29)
[2022-02-05 08:00] VITALS: BP 137/85
[2022-02-05] MEDS: CYANOCOBALAMIN 500 MCG TABLET PO SCH (08:32)
[2022-02-05] MEDS: CHOLECALCIFEROL 1,000 UNIT TABLET (VIT D3) PO SCH (08:32)
[2022-02-05] MEDS: OXCARBAZEPINE 150 MG TABLET PO SCH ×2 (08:32→21:36)
[2022-02-05] MEDS: ASCORBIC ACID 500 MG TABLET PO SCH (08:33)
--- NOTE | 2022-02-05 10:00 | NUR ---
RN Notes: Received pt. awake in the room, responsive to staffs and pleasant upon approached. Ate 100% for breakfast, compliant on meds. Encouraged to verbalize feelings and motivated to take shower. Needs attended and will continue to monitor for safety.
[2022-02-05 16:00] VITALS: BP 125/63
--- NOTE | 2022-02-05 19:30 | NUR ---
GPS RN NOTE, RECEIVED PATIENT AWAKE AND IN BED, NO S/S OR COMPLAINTS OF PAIN AT THIS TIME. PATIENT IS DISPLAYING NO S/S OF APPARENT DISTRESS AT THIS TIME. PATIENT BREATHING IS UNLABORED WITH EQUAL RISE AND FALL OF THE CHEST. PATIENT IS ALERT AND ORIENTED X 2 ON ROOM AIR WITH A SPO2 98%. PATIENT IS COMPLIANT WITH MEDICATIONS, CALM, POLITE, DISORGANIZED, DEMANDING, AND COOPERATIVE. PATIENT DENIES SUICIDAL AND HOMICIDAL IDEATIONS AT THIS TIME. PATIENT ASSISTED WITH TURNING AND REPOSITIONING Q2HR AND PRN FOR COMFORT AND CIRCULATION. PATIENT HAS NO NEEDS AT THIS TIME. PATIENT EDUCATED ON THE USE OF THE CALL PASTOR. PATIENT BED SIDE RAILS UP X 2 FOR SAFETY. PATIENT BED IS LOCKED, LOW, WITH BED ALARM ON. WILL CONTINUE TO MONITOR THIS PATIENT Q15 MINUTES WITH THE HELP OF STAFF TO MAINTAIN SAFETY.
[2022-02-05 21:03] VITALS: BP 124/75
[2022-02-05] MEDS: ZOLPIDEM TARTRATE 5 MG TABLET PO SCH (21:37)
[2022-02-05] MEDS: OLANZAPINE 10 MG TABLET PO SCH (21:37)
--- NOTE | 2022-02-05 21:37 | NUR ---
GPS RN NOTE, PATIENT HAS A COMPLAINT OF NOT BEING ABLE TO SLEEP AND IS REQUESTING AMBIEN AT THIS TIME. PATIENT VITAL SIGNS ARE STABLE. GAVE AMBIEN 10MG PO HS ORDERED. WILL REASSESS FOR INSOMNIA AND I WILL CONTINUE TO MONITOR THIS PATIENT WITH THE HELP OF STAFF.
[2022-02-06 08:00] VITALS: BP 142/83
[2022-02-06] MEDS: OXCARBAZEPINE 150 MG TABLET PO SCH (08:47)
[2022-02-06] MEDS: CHOLECALCIFEROL 1,000 UNIT TABLET (VIT D3) PO SCH (08:47)
[2022-02-06] MEDS: ASCORBIC ACID 500 MG TABLET PO SCH (08:47)
[2022-02-06] MEDS: CYANOCOBALAMIN 500 MCG TABLET PO SCH (08:48)
[2022-02-06 16:02] VITALS: BP 147/78
[2022-02-06 20:25] VITALS: BP 126/71
[2022-02-06] MEDS: OLANZAPINE 10 MG TABLET PO SCH (21:31)
[2022-02-06] MEDS: ZOLPIDEM TARTRATE 5 MG TABLET PO SCH (21:31)
[2022-02-06] MEDS ORDERED: OXCARBAZEPINE 150 MG TABLET PO SCH (22:00)
[2022-02-07 08:00] VITALS: BP 136/72
[2022-02-07] MEDS: ASCORBIC ACID 500 MG TABLET PO SCH (08:48)
[2022-02-07] MEDS: OXCARBAZEPINE 150 MG TABLET PO SCH ×2 (08:48→22:31)
[2022-02-07] MEDS: CYANOCOBALAMIN 500 MCG TABLET PO SCH (08:48)
[2022-02-07] MEDS: CHOLECALCIFEROL 1,000 UNIT TABLET (VIT D3) PO SCH (08:49)
--- NOTE | 2022-02-07 09:51 | NUR ---
SNF Referral: ANDREA sent clinicals to Ashley burris from [facility] ([phone]) for placement. ANDREA sent H & P, progress notes, and medication list.
--- NOTE | 2022-02-07 09:51 | NUR ---
SW Note: Pt approached this policy writer and stated that she got into an argument with her boyfriend and would want this policy writer to find her a facility.
--- NOTE | 2022-02-07 11:03 | NUR ---
SNF Contact: SW spoke with Ashley burris from [facility] ([phone]) who stated pt is accepted.
[2022-02-07 16:00] VITALS: BP 131/76
[2022-02-07 20:21] VITALS: BP 127/76
[2022-02-07] MEDS: OLANZAPINE 10 MG TABLET PO SCH (22:31)
[2022-02-07] MEDS: ZOLPIDEM TARTRATE 5 MG TABLET PO SCH (22:32)
[2022-02-08 08:00] VITALS: BP 117/82
--- NOTE | 2022-02-08 08:57 | NUR ---
SNF Referral: ANDREA sent clinicals to Maisha Gonzalez from [facility] ([phone]) for placement. SW sent H & P, progress notes, and medication list.
--- NOTE | 2022-02-08 08:57 | NUR ---
SNF Contact: SW received a call from Ashley burris from [facility] ([phone]) who stated pt is accepted.
[2022-02-08] MEDS: OXCARBAZEPINE 150 MG TABLET PO SCH ×2 (10:20→21:10)
[2022-02-08] MEDS: CHOLECALCIFEROL 1,000 UNIT TABLET (VIT D3) PO SCH (10:21)
[2022-02-08] MEDS: ASCORBIC ACID 500 MG TABLET PO SCH (10:21)
[2022-02-08] MEDS: CYANOCOBALAMIN 500 MCG TABLET PO SCH (10:21)
--- NOTE | 2022-02-08 10:58 | NUR ---
SNF Contact: SW received a call from Maisha Gonzalez from [facility] ([phone]) who stated pt is accepted.
--- NOTE | 2022-02-08 11:01 | NUR ---
SW Note: SW spoke with pt and pt was accepting of going to [facility].
--- NOTE | 2022-02-08 13:07 | NUR ---
GPS RN NOTES PATIENT WAS SEEN BY DR ARGUETA AND WITH ORDER OF CMP AND OXCARBAZEPINE LEVEL , ORDER NOTED AND CARRIED OUT
[2022-02-08 16:08] VITALS: BP 119/67
--- NOTE | 2022-02-08 19:05 | NUR ---
GPS END OF SHIFT REPORT PATIENT AWAKE AND ABLE TO NEEDS KNOWN , COMPLIANT WIITH CARE AND ATTEND ACTIVITIES IN THE MORNING AND AFTER NOON , NO BEAHAVIOR NOTED , DUE MEDS GIVEN ORDERED , AMBULATORY , SEEN BY DR ARGUETA AND WITH ORDER OF CMP AND TRILEPTAL LEVEL , ORDER NOTED AND CARRIED OUT , ALL NEEDS ATTENDED
[2022-02-08 20:26] VITALS: BP 110/60
[2022-02-08] MEDS: OLANZAPINE 10 MG TABLET PO SCH (21:09)
[2022-02-08] MEDS: ZOLPIDEM TARTRATE 5 MG TABLET PO SCH (21:10)
[2022-02-09 07:23] LABS: ALBUMIN 3.2 g/dL (3.4-5.0); BILIRUBIN,TOTAL 0.3 mg/dL (0.2-1.0); CALCIUM, SERUM 9.1 mg/dL (8.5-10.1); CREATININE 1.4 mg/dL (0.6-1.3); POTASSIUM 4.3 mmol/L (3.5-5.1); TOTAL PROTEIN, SERUM 7.2 g/dL (6.4-8.2)
[2022-02-09 08:00] VITALS: BP 115/74
[2022-02-09] MEDS: CHOLECALCIFEROL 1,000 UNIT TABLET (VIT D3) PO SCH (09:00)
[2022-02-09] MEDS: CYANOCOBALAMIN 500 MCG TABLET PO SCH (09:00)
[2022-02-09] MEDS: ASCORBIC ACID 500 MG TABLET PO SCH (09:03)
[2022-02-09] MEDS: OXCARBAZEPINE 150 MG TABLET PO SCH ×2 (09:03→21:27)
[2022-02-09] MEDS: MAGNESIUM HYDROXIDE 30 ML UDC PO PRN (14:21)
[2022-02-09 16:00] VITALS: BP 112/71
[2022-02-09 19:50] VITALS: BP 102/61
[2022-02-09] MEDS: OLANZAPINE 10 MG TABLET PO SCH (21:26)
[2022-02-09] MEDS: ZOLPIDEM TARTRATE 5 MG TABLET PO SCH (21:28)
[2022-02-10 08:00] VITALS: BP 127/87
[2022-02-10] MEDS: ASCORBIC ACID 500 MG TABLET PO SCH (08:02)
[2022-02-10] MEDS: OXCARBAZEPINE 150 MG TABLET PO SCH ×2 (08:02→21:15)
[2022-02-10] MEDS: CYANOCOBALAMIN 500 MCG TABLET PO SCH (08:02)
[2022-02-10] MEDS: CHOLECALCIFEROL 1,000 UNIT TABLET (VIT D3) PO SCH (08:06)
--- NOTE | 2022-02-10 09:30 | NUR ---
RN Notes: Received pt. awake in her room, pleasant upon approached and responsive to staffs. Ate 100% for breakfast and compliant on meds. Pt. took shower. Encouraged to verbalize feelings and motivated to attend group activity. no distress and no agitation noted. Needs attended and will continue to monitor for safety.
[2022-02-10 16:00] VITALS: BP 119/75
[2022-02-10 17:13] LABS: BILIRUBIN,URINE NEGATIVE (NEGATIVE); COLOR,URINE YELLOW (YELLOW); LEUKOCYTE ESTERASE ,URINE NEGATIVE (NEGATIVE); NITRITE, URINE NEGATIVE (NEGATIVE); PROTEIN,URINE NEGATIVE (NEGATIVE); UGLUCOSE NEGATIVE (NEGATIVE); UROBILINOGEN,URINE 0.2 EU/dL (0.2)
--- NOTE | 2022-02-10 19:30 | NUR ---
GPS RN NOTE, RECEIVED PATIENT AWAKE AND IN BED, NO S/S OR COMPLAINTS OF PAIN AT THIS TIME. PATIENT IS DISPLAYING NO S/S OF APPARENT DISTRESS AT THIS TIME. PATIENT BREATHING IS UNLABORED WITH EQUAL RISE AND FALL OF THE CHEST. PATIENT IS ALERT AND ORIENTED X 2 ON ROOM AIR WITH A SPO2 94%. PATIENT IS COMPLIANT WITH MEDICATIONS, CALM, POLITE, DISORGANIZED, DEMANDING, AND COOPERATIVE. PATIENT DENIES SUICIDAL AND HOMICIDAL IDEATIONS AT THIS TIME. PATIENT ASSISTED WITH TURNING AND REPOSITIONING Q2HR AND PRN FOR COMFORT AND CIRCULATION. PATIENT HAS NO NEEDS AT THIS TIME. PATIENT EDUCATED ON THE USE OF THE CALL PASTOR. PATIENT BED SIDE RAILS UP X 2 FOR SAFETY. PATIENT BED IS LOCKED, LOW, WITH BED ALARM ON. WILL CONTINUE TO MONITOR THIS PATIENT Q15 MINUTES WITH THE HELP OF STAFF TO MAINTAIN SAFETY.
[2022-02-10 20:00] VITALS: BP 139/77
[2022-02-10] MEDS: OLANZAPINE 10 MG TABLET PO SCH (21:15)
[2022-02-10] MEDS: ZOLPIDEM TARTRATE 5 MG TABLET PO SCH (21:15)
[2022-02-11 08:00] VITALS: BP 119/77
--- NOTE | 2022-02-11 08:15 | NUR ---
Dr. Nuñez made aware that Trileptal level did not come out yet and said to give the med without the result yet.
[2022-02-11] MEDS: ASCORBIC ACID 500 MG TABLET PO SCH (08:17)
[2022-02-11] MEDS: CYANOCOBALAMIN 500 MCG TABLET PO SCH (08:17)
[2022-02-11] MEDS: OXCARBAZEPINE 150 MG TABLET PO SCH ×2 (08:17→21:26)
[2022-02-11] MEDS: CHOLECALCIFEROL 1,000 UNIT TABLET (VIT D3) PO SCH (08:17)
--- NOTE | 2022-02-11 09:30 | NUR ---
RN Notes: Received pt. awake in her room, pleasant upon approached and responsive to staffs. Ate 100% for breakfast and compliant on meds. Encouraged to verbalize feelings and motivated to attend group activity. No distress and no agitation noted. Will continue to monitor for safety.
[2022-02-11 16:00] VITALS: BP 117/75
[2022-02-11 20:08] VITALS: BP 145/89
--- NOTE | 2022-02-11 20:44 | NUR ---
RN NOTES; RECEIVED PATIENT IN BED RESTING. ABLE TO MAKE NEEDS KNOWN. BREATHING UNLABORED NOT IN ANY FORM OF DISTRESS. PATIENT IS ANXIOUS, PARANOID,BUT COOPERATIVE TO CARE, REDIRECTABLE. DENIES SI/HI/AVH AT THIS TIME.ENCOURAGED TO VERBALIZED ANY FEELING OR CONCERN, AND ENCOURAGED TO ATTEND GROUP ACTIVITIES, SAFETY PRECAUTIONS MAINTAINED. WILL CONTINUE TO MONITOR Q15MIN ROUNDS FOR SAFETY AND BEHAVIOR.
[2022-02-11] MEDS: OLANZAPINE 10 MG TABLET PO SCH (21:25)
[2022-02-11] MEDS: ZOLPIDEM TARTRATE 5 MG TABLET PO SCH (22:14)
[2022-02-12 08:00] VITALS: BP 110/68
[2022-02-12] MEDS: CYANOCOBALAMIN 500 MCG TABLET PO SCH (08:05)
[2022-02-12] MEDS: OXCARBAZEPINE 150 MG TABLET PO SCH ×2 (08:05→21:06)
[2022-02-12] MEDS: CHOLECALCIFEROL 1,000 UNIT TABLET (VIT D3) PO SCH (08:05)
[2022-02-12] MEDS: ASCORBIC ACID 500 MG TABLET PO SCH (08:08)
[2022-02-12 16:00] VITALS: BP 111/65
--- NOTE | 2022-02-12 18:01 | NUR ---
RN-NOTES PATIENT VISIBLE IN THE UNIT, A/O X3,CALM,COOPERATIVE WITH THE STAFF, COMPLIANT WITH MEDICATION,NO ACUTE DISTRESS NOTED. AMBULATORY STEADY GAIT. PATIENT ABLE TO MAKE NEEDS KNOWN TO THE STAFF.ALL NEEDS ATTENDED AND ANTICIPATED.WILL CONT. MONITORING FOR SAFETY AND BEHAVIOR.WILL ENDORSE TO INCOMING NURSE FOR CONTINUITY OF CARE.
[2022-02-12 20:00] VITALS: BP 119/72
--- NOTE | 2022-02-12 20:18 | NUR ---
RN NOTES: RECEIVED PATIENT IN BED RESTING.TALKING WITH HER ROOMMATE ABLE TO MAKE NEEDS KNOWN. BREATHING UNLABORED NOT IN ANY FORM OF DISTRESS. PATIENT IS ANXIOUS, PARANOID,BUT COOPERATIVE TO CARE, REDIRECTABLE. DENIES SI/HI/AVH AT THIS TIME.ENCOURAGED TO VERBALIZED ANY FEELING OR CONCERN, AND ENCOURAGED TO ATTEND GROUP ACTIVITIES, SAFETY PRECAUTIONS MAINTAINED. WILL CONTINUE TO MONITOR Q15MIN ROUNDS FOR SAFETY AND BEHAVIOR.
[2022-02-12] MEDS: OLANZAPINE 10 MG TABLET PO SCH (21:06)
[2022-02-12] MEDS: ZOLPIDEM TARTRATE 5 MG TABLET PO SCH (22:03)
[2022-02-13 08:00] VITALS: BP 109/72
[2022-02-13] MEDS: CYANOCOBALAMIN 500 MCG TABLET PO SCH (08:28)
[2022-02-13] MEDS: OXCARBAZEPINE 150 MG TABLET PO SCH ×2 (08:29→21:18)
[2022-02-13] MEDS: CHOLECALCIFEROL 1,000 UNIT TABLET (VIT D3) PO SCH (08:29)
[2022-02-13] MEDS: ASCORBIC ACID 500 MG TABLET PO SCH (08:29)
[2022-02-13 16:00] VITALS: BP 135/82
[2022-02-13 20:23] VITALS: BP 104/56
[2022-02-13] MEDS: ZOLPIDEM TARTRATE 5 MG TABLET PO SCH (21:18)
[2022-02-13] MEDS: OLANZAPINE 10 MG TABLET PO SCH (21:18)
--- NOTE | 2022-02-13 21:32 | NUR ---
RN Note: Refused skin reassessment,offered x3.
[2022-02-14 08:00] VITALS: BP 115/76
[2022-02-14] MEDS: CYANOCOBALAMIN 500 MCG TABLET PO SCH (09:32)
[2022-02-14] MEDS: CHOLECALCIFEROL 1,000 UNIT TABLET (VIT D3) PO SCH (09:32)
[2022-02-14] MEDS: OXCARBAZEPINE 150 MG TABLET PO SCH (09:33)
[2022-02-14] MEDS: ASCORBIC ACID 500 MG TABLET PO SCH (09:33)
--- NOTE | 2022-02-14 10:45 | NUR ---
SW Discharge Note: Patient will be discharged to [facility] located at [address] [place] [address]; ([phone]). Transportation will be provided by [facility] at 1PM. Patients partner Johnnie ([phone]) is aware and agreeable of discharge. Maisha melendez ([phone]) confirmed that patient is welcomed to [facility]. Patient is alert and oriented x2. Patient denies visual/auditory hallucinations. Patient denies suicidal or homicidal ideation. Patient will follow up with (Psychiatrist) Dr. Macdonald located at [address], [place] [address]; ([phone]). Patient will follow up with (Supervisor Customer Complaint Service) Dr. Faustin located at [address], [place] ([phone]). Patient presents with euthymic mood and congruent affect.
--- NOTE | 2022-02-14 13:45 | NUR ---
Patient discharged to [facility] .
--- NOTE | 2022-02-14 13:45 | NUR ---
Patient discharged to [facility] in stable condition.Compliant with medications ,cooperative with treatment plans Patient denies SI/HI/AVH .Behavior improved ,psychiatric tx plans met ,medical tx plans differed for for continual monitoring .Educated pt about after care plan (Exit -care)and copy provided Returned personal belongings to patient med list given and explained to patient able to verbalize understanding, report given to Maisha JEFFERSON in facility .Vs stable ,no c/o pain .Patient seen by and with discharge orders .Patient discharge at 1345 with automation driver from [facility] facility .
== END 2022-02-14 13:30 | DRG 885 ==
LOC: GPS 07:38
PROVIDERS: ADMIT Psychiatry & Neurology Psychiatry; ATTEND Student in an Organized Health Care Education/Training Program
DX: F31.10 Bipolar disorder, current episode manic without psychotic features, unspecified (principal); N17.0 Acute kidney failure with tubular necrosis; F25.9 Schizoaffective disorder, unspecified; M81.0 Age-related osteoporosis without current pathological fracture; F29 Unspecified psychosis not due to a substance or known physiological condition; Z73.6 Limitation of activities due to disability; R74.01 Elevation of levels of liver transaminase levels; E88.09 Other disorders of plasma-protein metabolism, not elsewhere classified; I89.0 Lymphedema, not elsewhere classified; R79.89 Other specified abnormal findings of blood chemistry
CPT/HCPCS: 36415; 80053-TC; 80061-TC; 82542; 84443-TC; 93970-TC